=== PATIENT | female | born 1935 ===

== ENCOUNTER 2024-10-23 06:16 | Day surgery (SDC) | payer OTHER ==
[2024-10-23] MEDS ORDERED: NALOXONE HCL 0.4 MG/ML AMPUL IV STA (12:39)
[2024-10-23] MEDS ORDERED: FLUMAZENIL 0.5 MG/5 ML ML IV STA (12:39)
[2024-10-23] MEDS ORDERED: fentaNYL CITRATE 50 MCG/ML AMPUL IV PUSH ONE (12:45)
[2024-10-23] MEDS ORDERED: DIPHENHYDRAMINE HCL 50 MG/ML VIAL 1ML IV ONE (12:45)
[2024-10-23] MEDS ORDERED: MIDAZOLAM HCL 2 MG/2 ML VIAL IV ONE (12:45)
== END 2024-10-23 14:00 | disposition home or self-care (01) ==
LOC: AMB-ENDOS 06:16
PROVIDERS: ATTEND Surgery
DX: D12.7 Benign neoplasm of rectosigmoid junction (principal); K62.4 Stenosis of anus and rectum